=== PATIENT | male | born 1965 | race Caucasian/White ===

== ENCOUNTER → 2016-12-08 | Day surgery (SDC) | payer SELFPAY ==
[2016-12-01 14:59] VITALS: Ht 182.9 cm; Wt 110.5 kg
[~2016-12-08] VITALS: Ht 182.9 cm; Wt 110.5 kg
[~2016-12-08] MED LIST: HYZ/50125 PO; LIDOCAINE HCL 2% 2 ML VIAL (20MG/ML) ONE; MIDAZOLAM HCL 1 MG/ML 2ML VIAL ONE; ONDANSETRON INJ 2 MG/ML 2 ML VIAL ONE; PROPOFOL IV EMULSION 10 MG/ML 20 ML VIAL IV ONE; SODIUM CHLORIDE 0.9% 500ML 500 ML IV ONE
[2016-12-08 09:49] VITALS: TEMP 36.8
--- NOTE | 2016-12-08 10:10 | Endo History and Physical ---
History & Physical Date of Service: Dec 08, 2016. Chief Complaint: SCREENING FOR COLON C.A. Referring Physician: DR. AMANDA BONE History of Present Illness 51 yo CM who presents for screening colonoscopy. Past Surgical History Hx Cardiac Surgery: No Hx Internal Defibrillator: No Hx Pacemaker: No Hx Abdominal Surgery: No Hx of Implantable Prosthesis: No Hx Post-Op Nausea and Vomiting: No Hx Cancer Surgery: No Hx Thoracic Surgery: No Hx Orthopedic: No Hx Urinary Tract Surgery: No Family History Colon CA Social History Smoking Status: Former Smoker Hx Substance Use: No Hx Alcohol Use: Yes (QUIT 20 YEARS AGO) Allergies Coded Allergies: No Known Allergies (Verified , 12/08/16) Current Medications Reported Home Medications Medications Dose Route/Sig Max Daily Dose Days Date Category Hyzaar 12.5MG/50MG (HCTZ/Losartan Potassium) Tab 1 Tab PO QAM 11/09/15 Reported Vital Signs Weight (Kilograms): 110.45 Height (Feet): 6 Height (Inches): 0 Date Time Temp Pulse Resp B/P Pulse Ox O2 Delivery O2 Flow Rate FiO2 12/08/16 09:49 36.8 84 16 150/90 96 Room Air 0 Physical Exam General Appearance: WD/WN, no apparent distress Respiratory/Chest: Auscultation: breath sounds normal Cardiovascular: Heart Auscultation: RRR Abdomen: Bowel Sounds: normal Inspection & Palpation: soft, non-distended, no tenderness, guarding & rebound Assessment and Plan Assessment: 51 yo CM who presents for screening colonoscopy. Plan: Proceed with colonoscopy.
--- NOTE | 2016-12-08 10:35 | Discharge Instructions ---
Endoscopy Patient Instructions Date / Procedure(s) Performed Dec 08, 2016. Colonoscopy Allergy Information Coded Allergies: No Known Allergies (Verified , 12/08/16) Discharge Date / Findings Dec 08, 2016. Colon polyps Internal hemorrhoids Medication Instructions OK to resume all medications today as prescribed Reported Home Medications Medications Dose Route/Sig Max Daily Dose Days Date Category Hyzaar 12.5MG/50MG (HCTZ/Losartan Potassium) Tab 1 Tab PO QAM 11/09/15 Reported Provider Instructions Activity Restrictions - No exercising or heavy lifting for 24 hours. - Do not drink alcohol the day of the procedure. - Do not drive a car or operate machinery until the day after the procedure. - Do not make any important decisions or sign important papers in 24 hours after the procedure. Following Day: - Return to full activity which may include returning to work/school. Diet Start your diet with liquids and light foods (jello, soup, juice, toast). Then eat your usual diet if not nauseated. Treatment For Common After Affects For mild abdominal pain, bloating, or excessive gas: - Rest - Eat lightly - Lie on right side Follow-Up Information Follow-up with DR. AMANDA BONE as scheduled Anesthesia Information What You Should Know You have had a procedure that required some medicine to reduce anxiety and discomfort. This treatment is called moderate sedation. After receiving the treatment, you may be sleepy, but you will be able to breathe on your own. The effects of the treatment may last for several hours. Follow these instructions along with Activity/Diet recommendations noted above: * Do NOT do anything where dizziness or clumsiness would be dangerous. * Rest quietly at home today, then you can be up and about tomorrow. * Have a responsible person stay with you the rest of today. * You may have had an I.V. today. If so, you may take the dressing off later today. Recommendations Call your doctor if: * Trouble breathing * Continuous vomiting for more than 24 hours * Temperature above 101 degrees * Severe abdominal pain or bloating * Pain not relieved by pain medicine ordered * There is increased drainage or redness from any incision * A large amount of rectal bleeding greater than 2-3 tablespoons. (If you had a polyp/s removed or have hemorrhoids, a small amount of blood - from the rectum is to be expected.) * You have any unanswered questions or concerns. IN THE EVENT OF A SERIOUS EMERGENCY, GO TO THE NEAREST EMERGENCY ROOM Your discharge instructions were prepared by provider James Lorenz. Patient Instructions Signature Page Doug Davis Patient (or Guardian) Signature/Date: I have read and understand the instructions given to me by my caregivers. Caregiver/RN/Doctor Signature/Date: The above-named patient and/or guardian has received patient instructions on this date. + Original Patient Signature Page (only) stays with chart. Please make copy for patient.
--- NOTE | 2016-12-08 10:37 | GI REPORT ---
Procedure Date: 12/08/2016 10:07 AM Procedure: Colonoscopy Indications: Screening for colorectal malignant neoplasm Medicines: Monitored Anesthesia Care Complications: No immediate complications. Estimated Blood Loss: Estimated blood loss: none. Procedure: Pre-Anesthesia Assessment: - Prior to the procedure, a History and Physical was performed, and patient medications and allergies were reviewed. The patient's tolerance of previous anesthesia was also reviewed. The risks and benefits of the procedure and the sedation options and risks were discussed with the patient. All questions were answered, and informed consent was obtained. Prior Anticoagulants: The patient has taken no previous anticoagulant or antiplatelet agents. ASA Grade Assessment: II - A patient with mild systemic disease. After reviewing the risks and benefits, the patient was deemed in satisfactory condition to undergo the procedure. After I obtained informed consent, the scope was passed under direct vision. Throughout the procedure, the patient's blood pressure, pulse, and oxygen saturations were monitored continuously. The scope was introduced through the anus and advanced to the terminal ileum. The colonoscopy was performed without difficulty. The patient tolerated the procedure well. The quality of the bowel preparation was good. The terminal ileum, ileocecal valve, appendiceal orifice, and rectum were photographed. Findings: Two sessile polyps were found in the sigmoid colon. The polyps were 4 to 8 mm in size. These polyps were removed with a hot snare. Resection and retrieval were complete. A 3 mm polyp was found in the rectum. The polyp was sessile. The polyp was removed with a cold biopsy forceps. Resection and retrieval were complete. Non-bleeding internal hemorrhoids were found during retroflexion. The hemorrhoids were small. Impression: - Two 4 to 8 mm polyps in the sigmoid colon, removed with a hot snare. Resected and retrieved. - One 3 mm polyp in the rectum, removed with a cold biopsy forceps. Resected and retrieved. - Non-bleeding internal hemorrhoids. Recommendation: - Resume previous diet. - Continue present medications. - Repeat colonoscopy for surveillance based on pathology results. - Return to primary care physician as previously scheduled. James Lorenz DO 12/08/2016 10:37:35 AM This report has been signed electronically. Note Initiated On: 12/08/2016 10:07 AM
[2016-12-08 11:14] VITALS: BP 106/55; PULSE 66; O2SAT 99
--- NOTE | 2016-12-08 12:08 | Anesthesiology Progress Note ---
Anesthesia Post Op Note Date & Time Dec 08, 2016 at 12:08 Vital Signs Pain Intensity: 0 Vital Signs Past 12 Hours Date Time Temp Pulse Resp B/P Pulse Ox O2 Delivery O2 Flow Rate FiO2 12/08/16 11:14 66 20 106/55 99 Room Air 12/08/16 10:57 69 20 116/72 93 Room Air 12/08/16 10:41 77 20 130/60 96 Room Air 12/08/16 09:49 36.8 84 16 150/90 96 Room Air 0 Notes Mental Status: alert / awake / arousable, participated in evaluation Pt Amnestic to Procedure: Yes Nausea / Vomiting: adequately controlled Pain: adequately controlled Airway Patency, RR, SpO2: stable & adequate BP & HR: stable & adequate Hydration State: stable & adequate Anesthetic Complications: no major complications apparent
== END | disposition home or self-care (01) ==
LOC: C.GI 09:17
PROVIDERS: ATTEND Internal Medicine
DX: Z12.11 Encounter for screening for malignant neoplasm of colon (principal); D12.5 Benign neoplasm of sigmoid colon; K62.1 Rectal polyp; Z80.0 Family history of malignant neoplasm of digestive organs; K64.8 Other hemorrhoids; Z87.891 Personal history of nicotine dependence

== ENCOUNTER → 2017-12-30 | Day surgery (SDC) | payer OTHER ==
[2017-12-29 12:42] VITALS: Ht 182.9 cm; Wt 110.5 kg
[~2017-12-30] VITALS: Ht 182.9 cm; Wt 110.5 kg
[~2017-12-30] MED LIST changes: +ATROPINE SULFATE 0.1 MG/ML 5ML SYR IV PRN; +CIPROFLOXACIN 400MG / D5W IV SCH; +DEXAMETHASONE SOD INJ 4 MG/ML VIAL ONE; +EpHEDrine SULFATE INJ 50 MG/ML AMP IV PRN; +FENTANYL CITRATE INJ 50 MCG/1 ML 2 ML VIAL ONE; +HYDR-5688 PO; +HYDR25TA5 PO; +HYDROmorphone INJ 1 MG/ML SYR IV PRN; -HYZ/50125 PO; +LACTATED RINGER'S 1000ML 1,000 ML IV SCH; +LOSA50TA6 PO; +ONDANSETRON INJ 2 MG/ML 2 ML VIAL IV PRN; +OXYC-57 PO; +OXYCODONE/ACETAMINOPHEN 5-325 TAB PO PRN; +PROMETHAZINE HCL INJ 12.5 MG in SODIUM CHLORIDE 0.9% 50ML 50 ML IV PRN; -SODIUM CHLORIDE 0.9% 500ML 500 ML IV ONE
--- NOTE | 2017-12-30 09:13 | History & Physical Bridge Note ---
H&P Re-Evaluation Bridge Note: I have examined the patient, reviewed the History & Physical and in the interval since the performance of the History & Physical I have noted the following changes of clinical significance: No changes noted
--- NOTE | 2017-12-30 09:46 | [facility] Operative Report ---
Operative Report Operative Date Dec 30, 2017. Pre-Operative Diagnosis right ureteral stone Post-Operative Diagnosis right ureteral stone Procedure(s) Performed right eswl Surgeon mercy Estimated Blood Loss none Findings right ureteral stone Specimens none Drains None Anesthesia Type General Complication(s) none Disposition yes Recovery Room / PACU Indications 52 year old white male with right ureteral stone Description of Procedure Patient was identified in the preoperative holding area, appropriate informed consent was reviewed and completed and the patient was transported to the operating suite. Upon arrival appropriate preoperative antibiotics were administered and general anesthesia induced. The patient was placed in supine position and the stone was localized under fluoroscopy. A total of [_3000__] shocks were delivered to the stone. There appeared to be good fragmentation of the stone. Details of this procedure can be found on the [place] [facility] information sheet. At the conclusion of the case the patient was extubated and taken to the PACU in stable condition. There were no complications. I attest to the content of the Intraoperative Record and any orders documented therein. Any exceptions are noted below.
--- NOTE | 2017-12-30 09:47 | Discharge Instructions-SurgCtr ---
Discharge Instructions Date of Service Dec 30, 2017. Visit Reason for Visit: Right Renal Calculus Discharge Discharge Diagnosis / Problem: stone Discharge Goals Goal(s): Therapeutic intervention Activity Recommendations Activity Limitations: resume your previous activity (take it easy today) Exercise/Sports Limitations: rest today May Resume Sexual Activity: when tolerated Shower/Bathe: no limitations Driving or Machine Use: resume 1 day after discharge Anesthesia . Post Anesthesia Instructions: If you have had General Anesthesia or IV Sedation: * Do not drive today. * Resume driving when surgeon permits. * Do not make important decisions or sign legal documents today. * Call surgeon for: 1. Temperature elevations greater than 101 degrees F. 2. Uncontrollable pain. 3. Excessive bleeding. 4. Persistent nausea and vomiting. 5. Medication intolerance (nausea, vomiting or rash). * For nausea and vomiting use only clear liquids such as: tea, soda, bouillon until nausea subsides, then gradually increase diet as tolerated. * If you have any concerns or questions, call your surgeon's office. If physician is unavailable and it is an emergency, call 911 or go to the nearest emergency room. . Instructions / Follow-Up Instructions / Follow-Up MEDICATIONS: Resume previous medications unless instructed otherwise by your surgeon. Resume pre-ESWL medication except for aspirin, coumadin or other blood thinners. __ Toradol 10 mg every 6 hours for initial pain. __ Lortab 5 mg 1-2 every 4 hours for pain. _x_ Percocet 5 mg 1-2 every 4 hours for pain. __ Macrodantin 50 mg x 3 a day. __ Flomax 1 tab daily one half (1/2) hour after supper. SPECIAL CARE INSTRUCTIONS: 1. Get KUB (x-ray) _x_ day before or day of office visit and bring x-ray to office __ get x-ray 2 days before and tell office you are getting x-rays when you call for the appointment. 2. Strain ALL urine. 3. Please call if you have a fever, chills, severe pain, or constant dribbling of urine. 4. Office phone number . FOLLOW UP VISIT: Please call the office to schedule a follow-up appointment at . Diet Recommendations Home Diet: resume previous diet Procedures Procedures Performed: right eswl Pending Studies Studies pending at discharge: no Medical Emergencies . Who to Call and When: Medical Emergencies: If at any time you feel your situation is an emergency, please call 911 immediately. . Non-Emergent Contact Non-Emergency issues call your: Urologist Call Non-Emergent contact if: temperature is above 101.5, your pain is not controlled . . "Provider Documentation" section prepared by Ron Shen. . [place] Drug Monitoring Program Search Results: patient reviewed within database
[2017-12-30] MEDS: FENTANYL CITRATE INJ 50 MCG/1 ML 2 ML VIAL IV PRN ×4 (10:33→11:03)
--- NOTE | 2017-12-30 11:37 | Anesthesia Progress Nt - [facility] ---
Anesthesia Post Op Note Date & Time Dec 30, 2017 at 11:36 Vital Signs Pain Intensity: 4 Vital Signs Past 12 Hours Date Time Temp Pulse Resp B/P (MAP) Pulse Ox O2 Delivery O2 Flow Rate FiO2 12/30/17 11:29 68 16 133/86 95 Room Air 22/18 11:21 134/93 2/2/18 11:18 62 12 95 2/2/18 11:18 65 12 2/2/18 11:16 128/89 22/18 11:13 64 19 96 2/2/18 11:13 65 19 2/2/18 11:11 128/94 2/2/18 11:08 62 10 91 /2/18 11:08 62 10 2/2/18 11:07 61 10 22/18 11:07 36.6 61 12 143/94 96 Room Air 18 11:07 63 10 96 /2/18 11:06 143/94 2/18 11:02 63 19 98 2/2/18 11:02 62 19 2/2/18 11:01 139/95 2/2/18 10:57 62 16 2/2/18 10:57 65 16 134/98 100 2/2/18 10:52 61 13 100 2/2/18 10:52 61 13 2/2/18 10:51 121/80 2/2/18 10:47 61 13 2/2/18 10:47 62 13 95 2/2/18 10:46 119/92 2/2/18 10:42 62 13 100 2/2/18 10:42 62 13 2/2/18 10:41 113/87 2/2/18 10:37 63 10 100 2/2/18 10:37 64 10 2/2/18 10:36 121/94 2/2/18 10:32 58 8 100 2/2/18 10:32 59 8 2/2/18 10:31 135/92 2/2/18 10:27 66 13 100 2/2/18 10:27 65 13 2/2/18 10:26 65 14 135/97 100 2/2/18 10:26 65 14 2/2/18 10:21 62 12 133/77 99 2/2/18 10:21 61 12 2/2/18 10:16 36.9 64 12 122/80 98 Diffusion Mask 6 12/30/17 10:16 122/80 12/30/17 08:40 36.5 82 16 143/96 (112) 95 Room Air Notes Mental Status: alert / awake / arousable, participated in evaluation Pt Amnestic to Procedure: Yes Nausea / Vomiting: adequately controlled Pain: adequately controlled Airway Patency, RR, SpO2: stable & adequate BP & HR: stable & adequate Hydration State: stable & adequate Anesthetic Complications: no major complications apparent
[2017-12-30 11:40] VITALS: TEMP 36.4
[2017-12-30 12:19] VITALS: BP 134/83; PULSE 57; O2SAT 96
== END | disposition home or self-care (01) ==
LOC: X.SURG 08:02
PROVIDERS: ATTEND Urology
DX: N20.1 Calculus of ureter (principal); N20.0 Calculus of kidney; I10 Essential (primary) hypertension; E78.00 Pure hypercholesterolemia, unspecified; Z98.890 Other specified postprocedural states